=== PATIENT | male | born 1980 | race Caucasian/White ===

== ENCOUNTER 2020-03-23 15:39 | Emergency (ER) | payer OTHER ==
[~2020-03-23] VITALS: Ht 177.8 cm; Wt 111.1 kg
[2020-03-23] MEDS ORDERED: PROMETH-CODEIN 65 ML PO (17:05)
[2020-03-23 17:15] VITALS: BP 134/95
== END 2020-03-23 17:20 | disposition home or self-care (01) ==
LOC: ER 15:39
DX: R05 Cough (principal); Z20.828 Contact with and (suspected) exposure to other viral communicable diseases; F17.210 Nicotine dependence, cigarettes, uncomplicated